=== PATIENT | female | born 1930 | race Caucasian/White ===

== ENCOUNTER → 2016-11-23 | Outpatient (CLI) | payer MEDICARE, OTHER | END | disposition home or self-care (01) | LOC: SPEC 07:52 | PROVIDERS: ATTEND Internal Medicine | DX: E03.9 Hypothyroidism, unspecified (principal) | CPT/HCPCS: 84443 ==

== ENCOUNTER → 2016-12-11 | Outpatient (CLI) | payer MEDICARE, OTHER ==
[2016-12-11 10:27] LABS: BILIRUBIN,URINE NEG (NEG); CLARITY,URINE CLOUDY; COLOR,URINE YELLOW; GLUCOSE,URINE NEG (NEG); NITRITE,URINE NEG (NEG); UROBILINOGEN,URINE 0.2 mg/dL (0.2 mg/dL)
[2016-12-11 10:28] LABS: BACTERIA,URINE MANY /HPF (0-FEW); SQUAMOUS EPITHELIAL CELL,UR OCC /LPF
== END | disposition home or self-care (01) ==
LOC: SPEC 09:53
PROVIDERS: ATTEND Internal Medicine
DX: N39.0 Urinary tract infection, site not specified (principal)
CPT/HCPCS: 81001; 87086

== ENCOUNTER → 2016-12-12 | Outpatient (CLI) | payer MEDICARE, OTHER ==
--- NOTE | 2016-12-12 14:29 | RAD ---
Indication cough and fever. Shortness of breath. PA and lateral views of the chest were obtained. Comparison is made to an examination 8 years earlier. The heart and pulmonary vessels are unremarkable. A focal infiltrate is not seen. Significant pleural fluid is not present. There is no pneumothorax. Scoliosis is noted. There are degenerative changes about the left shoulder. IMPRESSION: No acute or focal process seen in the chest
== END | disposition home or self-care (01) ==
LOC: DXRAD 13:51
PROVIDERS: ATTEND Family Medicine
DX: R05 Cough (principal); R06.02 Shortness of breath
CPT/HCPCS: 71020

== ENCOUNTER → 2016-12-26 | Outpatient (CLI) | payer MEDICARE, OTHER ==
[2016-12-26 08:46] LABS: CLARITY,URINE CLEAR; COLOR,URINE STRAW
[2016-12-26 08:47] LABS: BACTERIA,URINE 0 /HPF (0-FEW); BILIRUBIN,URINE NEG (NEG); GLUCOSE,URINE NEG (NEG); NITRITE,URINE NEG (NEG); RBC,URINE RARE /HPF (0-2); SQUAMOUS EPITHELIAL CELL,UR FEW /LPF; UROBILINOGEN,URINE 0.2 mg/dL (0.2 mg/dL); WBC,URINE RARE /HPF (0-4)
== END | disposition home or self-care (01) ==
LOC: SPEC 08:10
PROVIDERS: ATTEND Internal Medicine
DX: N39.0 Urinary tract infection, site not specified (principal); Z79.2 Long term (current) use of antibiotics
CPT/HCPCS: 81001

== ENCOUNTER → 2016-12-28 | Outpatient (CLI) | payer MEDICARE, OTHER | END | disposition home or self-care (01) | LOC: SPEC 15:53 | PROVIDERS: ATTEND Internal Medicine | DX: E63.9 Nutritional deficiency, unspecified (principal) | CPT/HCPCS: 84443 ==

== ENCOUNTER → 2017-05-26 | Outpatient (CLI) | payer MEDICARE, OTHER | END | disposition home or self-care (01) | LOC: SPEC 10:05 | PROVIDERS: ATTEND Internal Medicine | DX: E03.9 Hypothyroidism, unspecified (principal) | CPT/HCPCS: 84443 ==

== ENCOUNTER → 2017-06-29 | Outpatient (CLI) | payer MEDICARE, OTHER | END | disposition home or self-care (01) | LOC: SPEC 10:09 | PROVIDERS: ATTEND Internal Medicine | DX: E03.9 Hypothyroidism, unspecified (principal); Z79.2 Long term (current) use of antibiotics | CPT/HCPCS: 84443 ==

== ENCOUNTER → 2021-11-08 | Outpatient (CLI) | payer MEDICARE, OTHER ==
--- NOTE | 2021-11-08 16:38 | RAD ---
3 views the bilateral shoulders for shoulder pain, compared to similar exam dated September 15, 2020 an d September 23, 2018. 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 Soft tissue clips in left axilla are stable. AC joint capsule hypertrophy is stable.On the left, findings are similar, though the glenoid humeral joint appears slightly wider than on the right. Heterotopic bone inferior humeral head is st able. 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 No fracture or acute osseous abnormality is seen. IMPRESSION: 1. Bilateral degenerative changes, with interval progression involving the right glenohumeral joint. Electronically signed by: Emerson Winter MD (11/08/2021 4:36 PM) [id number]
== END ==
LOC: RAD 14:26
PROVIDERS: ATTEND Physician Assistant
DX: M19.011 Primary osteoarthritis, right shoulder (principal); M19.012 Primary osteoarthritis, left shoulder; M81.0 Age-related osteoporosis without current pathological fracture
CPT/HCPCS: 73030-50